=== PATIENT | female | born 1945 | race Caucasian/White ===

== ENCOUNTER → 2019-10-03 12:43 | Outpatient (CLI) | payer BC, SELFPAY ==
--- NOTE | ~2019-10-03 | US_ITS ---
US soft tissue head and neck 10/03/2019 13:26 Indication: Palpable right neck mass for 2 months. Procedure: High-resolution ultrasound of the right neck in the area of palpable concern Comparison: No prior studies for comparison. Findings: There are multiple lymph nodes in the area of palpable concern with normal fatty hilum. Lar gest lymph node measures 1.5 x 1.4 x 0.5 cm. No abnormal fluid collections. Impression: 1: Right cervical lymphadenopathy, largest measuring 1.5 cm maximum dimension, likely reactive. Reviewed, dictated and finalized at location A. CTURAL DESIGNER Impression: 1: Right cervical lymphadenopathy, largest measuring 1.5 cm maximum dimension, likely reactive.
== END ==
PROVIDERS: Visit Provider Internal Medicine
DX: R22.1 Localized swelling, mass and lump, neck (principal)
CPT/HCPCS: 76536

== ENCOUNTER 2021-10-15 14:29 | Outpatient (CLI) | payer BC, SELFPAY ==
--- NOTE | ~2021-10-15 | XR_ITS ---
XR knee RT min 4V 10/15/2021 15:35 Indication: Right knee pain after jumping on trampoline Procedure: 4 views right knee Comparison: No prior studies for comparison. Findings: Mild osteoarthritis of the right knee. No acute fracture, subluxation or dislocation. Osteo penia. No significant joint effusion. Impression: 1: No acute bone or joint abnormality. Reviewed, dictated and finalized at location A. IFIED MAINTENANCE WELDER Impression: 1: No acute bone or joint abnormality.
--- NOTE | ~2021-10-15 | XR_ITS ---
XR knee LT min 4V DATE: 10/15/2021 15:36 INDICATION: Left knee pain after jumping on trampoline TECHNIQUE: 4 views COMPARISON: None FINDINGS: Diffuse osteopenia. There is moderate tricompartment osteoarthritis. No fracture or disloca tion or joint effusion is evident. No periosteal reaction or bone destruction. No radiopaque intra-ar ticular loose body or chondrocalcinosis. IMPRESSION: Diffuse osteopenia Moderate osteoarthritis No fracture or dislocation Reviewed, dictated and finalized at location A. ICE LINE LAYER
[2021-10-15 19:13] LABS: Alanine Aminotransferase 16 U/L (4-35); Albumin Level 4.3 g/dL (3.5-5.1); Alkaline Phosphatase 57 U/L (38-126); Anion Gap 6 mmol/L (8-16); Aspartate Amino Transferase 34 U/L (14-36); Bilirubin,Total 0.6 mg/dL (0.2-1.3); Blood Urea Nitrogen 18 mg/dL (7-17); Calcium 9.1 mg/dL (8.4-10.2); Carbon Dioxide 27 mmol/L (22-30); Chloride 106 mmol/L (98-107); Cholesterol 136 mg/dL (0-200); Estimated Glomerular Filt Rate > 60; Glucose 105 mg/dL (65-110); HDL Direct 58 mg/dL; Potassium 4.9 mmol/L (3.4-5.0); Sodium 139 mmol/L (137-145); Triglycerides 152 mg/dL (<150)
[2021-10-15 19:14] LABS: LDL Cholesterol Direct 56 mg/dL
[2021-10-16 12:02] LABS: Free T4 Free Thyroxine Reflex 1.13 ng/dL (0.78-2.19)
[2021-10-17 00:09] LABS: Total Triiodothyronine (T3) 1.46 NG/ML (0.97-1.69)
== END 2021-10-15 14:30 | disposition home or self-care (01) ==
LOC: ANHBWCLAB 14:30
PROVIDERS: PCP Family Medicine; Visit Provider Family Medicine
DX: M25.561 Pain in right knee (principal); M17.12 Unilateral primary osteoarthritis, left knee; R53.82 Chronic fatigue, unspecified; M79.7 Fibromyalgia; E07.9 Disorder of thyroid, unspecified; E78.00 Pure hypercholesterolemia, unspecified; M85.862 Other specified disorders of bone density and structure, left lower leg
CPT/HCPCS: 36415; 73564; 80053; 80061; 84439; 84443; 84480

== ENCOUNTER 2021-10-17 13:05 | Outpatient (CLI) | payer BC, SELFPAY ==
[2021-10-17 18:36] LABS: Basophils Percent Auto 0.5 % (0.2-1.2); Eosinophils Absolute Auto 0.2 K/mm3 (0-0.3); Eosinophils Percent Auto 3.2 % (0-4.4); Hematocrit 45.8 % (37.0-47.0); Hemoglobin 14.2 g/dL (12.0-15.0); Immature Granulocyte Absolute 0.01 K/mm3 (0.00-0.031); Immature Granulocyte Percent A 0.2 % (0-0.5); Immature Platelet Fraction Pct 5.8 % (0.9-11.2); Lymphocytes Absolute Auto 2.15 K/mm3 (0.9-3.2); Lymphocytes Percent Auto 34.2 % (18.3-44.2); Mean Corpuscular Hemoglobin 29.2 pg (26-34); Mean Corpuscular Volume 94.2 fl (80-100); Mean Platelet Volume 11.9 fl (7.4-10.4); Monocytes Absolute Auto 0.4 K/mm3 (0.1-0.6); Neutrophils Absolute Auto 3.5 K/mm3 (1.3-6.7); Neutrophils Percent Auto 55.9 % (45.5-73.1); Platelet Count Result 211 k/mm3 (150-375); Red Blood Count 4.86 M/mm3 (4.2-5.4); Red Cell Distribution Width 13.9 % (11.5-14.5); White Blood Count 6.3 K/mm3 (4.5-10.0)
[2021-10-17 19:07] LABS: Platelet Estimate Adequate (Adequate)
[2021-10-17 19:15] LABS: Hemoglobin A1C 5.8 % (<5.7)
== END 2021-10-17 13:06 | disposition home or self-care (01) ==
LOC: ANHBWCLAB 13:07
PROVIDERS: PCP Family Medicine; Visit Provider Family Medicine
DX: E66.9 Obesity, unspecified (principal)
CPT/HCPCS: 36415; 83036; 85025; 85055

== ENCOUNTER 2021-12-29 13:01 | Outpatient (CLI) | payer BC, SELFPAY ==
[2021-12-29 20:19] LABS: Free T4 Free Thyroxine Reflex 0.84 ng/dL (0.78-2.19)
[2021-12-29 21:08] LABS: Total Triiodothyronine (T3) 1.17 NG/ML (0.97-1.69)
== END 2021-12-29 13:02 | disposition home or self-care (01) ==
PROVIDERS: PCP Family Medicine; Visit Provider Family Medicine
DX: E07.9 Disorder of thyroid, unspecified (principal)
CPT/HCPCS: 36415; 84439; 84443; 84480

== ENCOUNTER 2022-04-01 09:36 | Outpatient (CLI) | payer BC, SELFPAY ==
--- NOTE | ~2022-04-01 | XR_ITS ---
EXAMINATION: XR humerus RT INDICATION: Right arm pain TECHNIQUE: Two views of the right humerus are obtained. COMPARISON: None available FINDINGS: No fracture is identified. 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 Cranial migrat ion of the humeral head with respect to the glenoid may reflect chronic rotator cuff fracture. The so ft tissues are unremarkable. IMPRESSION: 1. No acute osseous abnormality. Reviewed, dictated and finalized at location A.
== END 2022-04-01 09:37 | disposition home or self-care (01) ==
LOC: ANHBWCIMG 04-02 08:10
PROVIDERS: PCP Family Medicine; Visit Provider Family Medicine
DX: M19.011 Primary osteoarthritis, right shoulder (principal); E04.9 Nontoxic goiter, unspecified
CPT/HCPCS: 73060

== ENCOUNTER 2022-04-13 14:57 | Outpatient (CLI) | payer BC, SELFPAY ==
[2022-04-13 19:09] LABS: Free T4 Free Thyroxine 0.96 ng/mL (0.78-2.19)
[2022-04-13 20:04] LABS: Hemoglobin A1C 5.7 % (<5.7)
[2022-04-15 20:12] LABS: Triiodothyronine T3 Free 2.7 pg/mL (2.3-4.2)
== END 2022-04-13 14:58 | disposition home or self-care (01) ==
LOC: ANHBWCLAB 14:57
PROVIDERS: PCP Family Medicine; Visit Provider Family Medicine
DX: E07.9 Disorder of thyroid, unspecified (principal); E66.9 Obesity, unspecified
CPT/HCPCS: 36415; 83036; 84439; 84443; 84481

== ENCOUNTER 2022-04-30 15:05 | Outpatient (CLI) | payer BC, SELFPAY ==
[2022-04-30 19:33] LABS: Alanine Aminotransferase 18 U/L (6-35); Albumin Level 3.9 g/dL (3.5-5.1); Alkaline Phosphatase 60 U/L (38-126); Anion Gap 9 mmol/L (8-16); Aspartate Amino Transferase 62 U/L (14-36); Bilirubin,Total 0.4 mg/dL (0.2-1.3); Blood Urea Nitrogen 16 mg/dL (7-17); Calcium 9.2 mg/dL (8.4-10.2); Carbon Dioxide 25 mmol/L (22-30); Chloride 105 mmol/L (98-107); Estimated Glomerular Filt Rate > 60; Glucose 102 mg/dL (65-110); Potassium 4.2 mmol/L (3.4-5.0); Sodium 139 mmol/L (137-145)
== END 2022-04-30 15:06 | disposition home or self-care (01) ==
LOC: ANHBWCLAB 15:06
PROVIDERS: PCP Family Medicine; Visit Provider Family Medicine
DX: M75.100 Unspecified rotator cuff tear or rupture of unspecified shoulder, not specified as traumatic (principal)
CPT/HCPCS: 36415; 80053

== ENCOUNTER 2022-06-24 13:31 | Outpatient (CLI) | payer BC, SELFPAY ==
[2022-06-24 18:58] LABS: Alanine Aminotransferase 21 U/L (6-35); Albumin Level 4.3 g/dL (3.5-5.1); Alkaline Phosphatase 76 U/L (38-126); Aspartate Amino Transferase 55 U/L (14-36); Bilirubin,Total 0.6 mg/dL (0.2-1.3)
[2022-06-24 19:11] LABS: Free T4 Free Thyroxine 1.07 ng/mL (0.78-2.19)
[2022-06-24 19:43] LABS: Hepatitis B Surface Antigen Negative (Negative)
[2022-06-24 19:48] LABS: HAV RESULT Negative (Negative); Hepatitis B Core IgM Result Negative (Negative)
[2022-06-24 20:00] LABS: Hepatitis C Virus Antibody Negative (Negative)
[2022-06-30 22:23] LABS: Triiodothyronine T3 Free 2.9 pg/mL (2.3-4.2)
== END 2022-06-24 13:32 | disposition home or self-care (01) ==
PROVIDERS: PCP Family Medicine; Visit Provider Family Medicine
DX: E07.9 Disorder of thyroid, unspecified (principal); R74.01 Elevation of levels of liver transaminase levels; R21 Rash and other nonspecific skin eruption
CPT/HCPCS: 36415; 80074; 80076; 84439; 84443; 84481

== ENCOUNTER 2023-01-26 08:04 | Outpatient (CLI) | payer BC, SELFPAY ==
[2023-01-26 18:50] LABS: Alanine Aminotransferase 18 U/L (6-35); Albumin Level 4.1 g/dL (3.5-5.1); Alkaline Phosphatase 77 U/L (38-126); Anion Gap 1 mmol/L (8-16); Aspartate Amino Transferase 47 U/L (14-36); Bilirubin,Total 0.5 mg/dL (0.2-1.3); Blood Urea Nitrogen 13 mg/dL (7-17); Calcium 8.9 mg/dL (8.4-10.2); Carbon Dioxide 33 mmol/L (22-30); Chloride 103 mmol/L (98-107); Cholesterol 176 mg/dL (0-200); Estimated Glomerular Filt Rate > 60; Glucose 93 mg/dL (65-110); HDL Direct 57 mg/dL; Potassium 4.1 mmol/L (3.4-5.0); Sodium 137 mmol/L (137-145); Triglycerides 114 mg/dL (<150)
[2023-01-26 18:54] LABS: Basophils Percent Auto 0.3 % (0.2-1.2); Eosinophils Absolute Auto 0.2 K/mm3 (0-0.3); Eosinophils Percent Auto 3.5 % (0-4.4); Hematocrit 45.8 % (37.0-47.0); Hemoglobin 14.2 g/dL (12.0-15.0); Immature Granulocyte Absolute 0.01 K/mm3 (0.00-0.031); Immature Granulocyte Percent A 0.2 % (0-0.5); Lymphocytes Absolute Auto 2.63 K/mm3 (0.9-3.2); Lymphocytes Percent Auto 41.7 % (18.3-44.2); Mean Corpuscular Hemoglobin 28.6 pg (26-34); Mean Corpuscular Volume 92.3 fl (80-100); Monocytes Absolute Auto 0.4 K/mm3 (0.1-0.6); Monocytes Percent Auto 5.6 % (2.6-8.5); Neutrophils Absolute Auto 3.1 K/mm3 (1.3-6.7); Neutrophils Percent Auto 48.7 % (45.5-73.1); Platelet Count Result 233 k/mm3 (150-375); Red Blood Count 4.96 M/mm3 (4.2-5.4); Red Cell Distribution Width 13.7 % (11.5-14.5); White Blood Count 6.3 K/mm3 (4.5-10.0)
[2023-01-26 19:01] LABS: LDL Cholesterol Direct 93 mg/dL
== END 2023-01-26 08:05 | disposition home or self-care (01) ==
LOC: ANHBWCLAB 08:05
PROVIDERS: PCP Family Medicine; Visit Provider Family Medicine
DX: Z00.00 Encounter for general adult medical examination without abnormal findings (principal); E66.9 Obesity, unspecified; E78.00 Pure hypercholesterolemia, unspecified; F32.9 Major depressive disorder, single episode, unspecified; J45.909 Unspecified asthma, uncomplicated; M79.7 Fibromyalgia; M81.0 Age-related osteoporosis without current pathological fracture; R53.82 Chronic fatigue, unspecified; R59.0 Localized enlarged lymph nodes; Z15.89 Genetic susceptibility to other disease
CPT/HCPCS: 36415; 80053; 80061; 84443; 85025

== ENCOUNTER 2023-08-13 13:07 | Outpatient (CLI) | payer BC, SELFPAY ==
[2023-08-13 18:46] LABS: Hematocrit 47.7 % (37.0-47.0); Hemoglobin 14.6 g/dL (12.0-15.0); Mean Corpuscular HGB Conc 30.6 g/dl (32-36); Mean Corpuscular Hemoglobin 28.3 pg (26-34); Mean Corpuscular Volume 92.6 fl (80-100); Mean Platelet Volume 10.9 fl (7.4-10.4); Platelet Count Result 244 k/mm3 (150-375); Red Blood Count 5.15 M/mm3 (4.2-5.4); Red Cell Distribution Width 13.7 % (11.5-14.5); White Blood Count 8.2 K/mm3 (4.5-10.0)
[2023-08-13 18:49] LABS: Alanine Aminotransferase 30 U/L (6-35); Alkaline Phosphatase 74 U/L (38-126); Anion Gap 7 mmol/L (8-16); Aspartate Amino Transferase 43 U/L (14-36); Bilirubin,Total 0.5 mg/dL (0.2-1.3); Blood Urea Nitrogen 14 mg/dL (7-17); Calcium 9.2 mg/dL (8.4-10.2); Carbon Dioxide 29 mmol/L (22-30); Chloride 102 mmol/L (98-107); Estimated Glomerular Filt Rate > 60; Glucose 114 mg/dL (65-110); Sodium 138 mmol/L (137-145)
[2023-08-13 19:15] LABS: Free T4 Free Thyroxine 1.24 ng/mL (0.78-2.19)
== END 2023-08-13 13:08 | disposition home or self-care (01) ==
LOC: ANHBWCLAB 13:09
PROVIDERS: PCP Family Medicine; Visit Provider Family Medicine
DX: Z00.00 Encounter for general adult medical examination without abnormal findings (principal); E07.9 Disorder of thyroid, unspecified; F32.9 Major depressive disorder, single episode, unspecified; J45.909 Unspecified asthma, uncomplicated; M79.7 Fibromyalgia; M81.0 Age-related osteoporosis without current pathological fracture; R53.82 Chronic fatigue, unspecified; R59.0 Localized enlarged lymph nodes; R74.01 Elevation of levels of liver transaminase levels; E66.9 Obesity, unspecified; Z15.89 Genetic susceptibility to other disease
CPT/HCPCS: 36415; 80053; 84439; 84443; 85027

== ENCOUNTER 2023-12-07 12:23 | Outpatient (CLI) | payer BC, SELFPAY ==
--- NOTE | ~2023-12-07 | XR_ITS ---
EXAMINATION: XR chest 2V 12/07/2023 12:55 INDICATION: Cough PROCEDURE: 2 view chest COMPARISON: No prior studies for comparison. FINDINGS: The lungs are clear. The cardiomediastinal silhouette is within normal limits. There are no pleural effusions. There is no pneumothorax suspected. IMPRESSION: 1: NO ACUTE CARDIOPULMONARY DISEASE. Reviewed, dictated and finalized at location B.
== END 2023-12-07 12:24 | disposition home or self-care (01) ==
LOC: ANHBWCIMG 12:25
PROVIDERS: PCP Nurse Practitioner Adult Health; Visit Provider Nurse Practitioner Adult Health
DX: R05.9 Cough, unspecified (principal)
CPT/HCPCS: 71046